=== PATIENT | female | born 1990 | race Caucasian/White ===

== ENCOUNTER 2021-10-19 14:19 | Outpatient (REF) | payer OTHER, SELFPAY | END 2021-10-19 14:20 | disposition home or self-care (01) | LOC: HO.LNP 14:19 | PROVIDERS: Visit Provider Physician Assistant Medical | DX: Z13.89 Encounter for screening for other disorder (principal) ==

== ENCOUNTER 2022-02-24 04:55 | Outpatient (REF) | payer OTHER, SELFPAY ==
[2022-02-24 05:25] LABS: COVID-19 Test Negative (Negative); IDNOW Serial# BCCEAD1C
== END 2022-02-24 04:56 | disposition home or self-care (01) ==
LOC: HO.LAB 04:55
PROVIDERS: Visit Provider Internal Medicine
DX: Z20.822 Contact with and (suspected) exposure to COVID-19 (principal)
CPT/HCPCS: 87635